=== PATIENT | male | born 1985 | race Caucasian/White ===

== ENCOUNTER 2019-11-12 22:07 | Emergency (ER) | payer OTHER ==
[~2019-11-12] VITALS: Ht 172.7 cm; Wt 70.3 kg
[2019-11-12] MEDS ORDERED: PERCOCET 5-3251 EACH (22:26)
[2019-11-12] MEDS ORDERED: OXYCONTIN30 M1 (22:30)
== END 2019-11-13 03:27 | disposition home or self-care (01) ==
LOC: ER 22:07
DX: S42.251A Displaced fracture of greater tuberosity of right humerus, initial encounter for closed fracture (principal); S42.255A Nondisplaced fracture of greater tuberosity of left humerus, initial encounter for closed fracture; M19.112 Post-traumatic osteoarthritis, left shoulder; M19.111 Post-traumatic osteoarthritis, right shoulder; W10.8XXA Fall (on) (from) other stairs and steps, initial encounter; Y93.89 Activity, other specified; Y92.018 Other place in single-family (private) house as the place of occurrence of the external cause; Y99.8 Other external cause status

== ENCOUNTER 2019-11-18 06:00 | Day surgery (SDC) | payer OTHER ==
[~2019-11-18 06:00] MED LIST: OXYCONTIN30 M1; PERCOCET 5-3251 EACH
== END 2019-11-18 13:00 | disposition home or self-care (01) ==
LOC: CIR.AMB 06:00
DX: S42.251A Displaced fracture of greater tuberosity of right humerus, initial encounter for closed fracture (principal); S46.221A Laceration of muscle, fascia and tendon of other parts of biceps, right arm, initial encounter; M75.121 Complete rotator cuff tear or rupture of right shoulder, not specified as traumatic
CPT/HCPCS: 23615; 23410; 23430; C1776

== ENCOUNTER 2020-04-27 06:00 | Day surgery (SDC) | payer OTHER ==
[~2020-04-27 06:00] MED LIST changes: +OXYCONTIN20 M1 PO; +PERCOCET 5-3251 EACH PO
[2020-04-28] MEDS ORDERED: DICLOFENAC SOD100 GM TOP (11:21)
[2020-04-28] MEDS ORDERED: DICLOFENAC POTA50 MG PO (11:21)
== END 2020-04-27 10:55 | disposition home or self-care (01) ==
LOC: CIR.AMB 06:00
PROVIDERS: ATTEND Orthopaedic Surgery
DX: M75.112 Incomplete rotator cuff tear or rupture of left shoulder, not specified as traumatic (principal); T84.498A Other mechanical complication of other internal orthopedic devices, implants and grafts, initial encounter; M75.42 Impingement syndrome of left shoulder; Z20.828 Contact with and (suspected) exposure to other viral communicable diseases